=== PATIENT | female | born 1950 | race American Indian/Alaskan Native ===

== ENCOUNTER 2017-06-21 08:18 | Day surgery (SDC) | payer MEDICARE ==
[~2017-06-21 08:18] MED LIST: ANCEF/STERILE WATER 2 GM/20 ML 2 GM/20 ML SYRINGE IV NR; HEPARIN 10,000 UNITS/10 ML ONE; MARCAINE 0.25% INFILTRATI ONE; NACL 0.9% 1000 ML 1,000 ML IV SCH; NACL 0.9% 500 ML 500 ML ONE
[2017-06-21] MEDS ORDERED: DIPRIVAN 10 MG/ML IV ONE ×2 (09:49→12:51)
[2017-06-21] MEDS ORDERED: DILAUDID ONE (09:50)
[2017-06-21 09:52] LABS: Basophils % (Auto) 0.3 % (0.0-1.8); Eosinophils % (Auto) 1.8 % (0.0-4.3); Hematocrit 33.8 % (30.3-42.9); Hemoglobin 11.3 gm/dl (10.1-14.3); Mean Corpuscular HGB Conc 33 % (30-34); Mean Corpuscular Hemoglobin 31 pg (28-32); Mean Corpuscular Volume 93 fl (79-97); Platelet Count 212 K/mm3 (140-440); Red Blood Count 3.63 M/mm3 (3.65-5.03); Red Cell Distribution Width 16.8 % (13.2-15.2); White Blood Count 5.9 K/mm3 (4.5-11.0)
[2017-06-21 10:02] LABS: INR 0.98 (0.87-1.13)
[2017-06-21 10:04] LABS: BUN/Creatinine Ratio 10.71; Calcium 9.2 mg/dL (8.4-10.2); Potassium 4.2 mmol/L (3.6-5.0)
--- NOTE | 2017-06-21 10:08 | Anesthesia Day of Surgery ---
Anesthesia Day of Surgery - Day of Surgery Patient Examined: Yes Patient H&P Reviewed: Yes Patient is NPO: Yes
[2017-06-21] MEDS ORDERED: PEPCID IV NR (10:10)
[2017-06-21] MEDS ORDERED: PEPCID PO NR (10:10)
--- NOTE | 2017-06-21 10:10 | Anesthesia Consultation ---
Anesthesia Consult and Med Hx Date of service: 06/21/17 - Airway Anesthetic Teeth Evaluation: Good ROM Head & Neck: Adequate Mental/Hyoid Distance: Adequate Mallampati Class: Class II Intubation Access Assessment: Probably Good - Pulmonary Exam CTA: Yes - Cardiac Exam Cardiac Exam: RRR - Pre-Operative Health Status ASA Pre-Surgery Classification: ASA3 Proposed Anesthetic Plan: General - Pulmonary Hx Smoking: No Hx Asthma: No Hx Sleep Apnea: No - Cardiovascular System Hx Hypertension: Yes - Central Nervous System Hx Seizures: Yes (TREATED FOR EPILEPSY SINCE STROKE, NO SEIZURES SINCE 2000) CVA: Yes (STROKE 2000, on ASA) - Endocrine Hx Renal Disease: Yes Hx End Stage Renal Disease: Yes Hx Non-Insulin Dependent Diabetes: No
[2017-06-21] MEDS ORDERED: PEPCID ONE (10:19)
[2017-06-21] MEDS ORDERED: NACL 0.9% 500 ML IRRIGATION ONE (12:26)
[2017-06-21] MEDS ORDERED: HEPARIN 10,000 UNITS/10 ML 2,000 UNIT in NACL 0.9% 500 ML 500 ML IR ONE (12:26)
[2017-06-21] MEDS ORDERED: MARCAINE 0.25% INFILTRATI ONE ×2 (12:26)
[2017-06-21] MEDS ORDERED: NACL 0.9% IR ONE (12:26)
[2017-06-21] MEDS ORDERED: HEPARIN 10,000 UNITS/10 ML IV ONE (12:26)
[2017-06-21] MEDS ORDERED: XYLOCAINE MPF 2% ONE (12:58)
[2017-06-21] MEDS ORDERED: DECADRON ONE (12:59)
[2017-06-21] MEDS ORDERED: ZOFRAN ONE (13:00)
[2017-06-21] MEDS ORDERED: THROMBIN SPRAYKIT (BOVINE) TP ONE (13:50)
[2017-06-21] MEDS ORDERED: GELFOAM TP ONE ×2 (13:50→13:53)
[2017-06-21] MEDS ORDERED: THROMBIN (BOVINE) TP ONE (13:53)
--- NOTE | 2017-06-21 14:31 | Short Stay Summary ---
Short Stay Documentation Date of service: 06/21/17 - History H&P: obtained from office - Allergies and Medications Current Medications: Allergies QUAN Inhibitors Allergy (Verified 06/21/17 10:35) Angioedema codeine Allergy (Verified 06/13/17 09:22) N&V Home Medications Medication Instructions Recorded Confirmed Last Taken Type Aspirin [Aspirin BABY CHEW TAB] 81 mg PO QDAY 06/21/17 06/21/17 06/20/17 08:30 History AtorvaSTATin [Lipitor] 1 tab PO DAILY 06/21/17 06/21/17 06/20/17 08:30 History Cinacalcet HCl [Sensipar] 60 mg PO DAILY 06/21/17 06/21/17 06/20/17 20:30 History Escitalopram Oxalate [Lexapro] 1 tab PO DAILY 06/21/17 06/21/17 06/20/17 20:30 History Folic Acid 0.4 mg PO QDAY 06/21/17 06/21/17 06/20/17 08:30 History Pantoprazole [Protonix] 40 mg PO BID 06/21/17 06/21/17 06/20/17 20:30 History Vit B Comp&C/Folic Acid/Vit D3 1 tab PO DAILY 06/21/17 06/21/17 06/20/17 08:30 History [Dialyvite 800 Plus D Wafer] amLODIPine [Norvasc] 5 mg PO DAILY 06/21/17 06/21/17 06/20/17 08:30 History carBAMazepine [TEGretol] 200 mg PO TID 06/21/17 06/21/17 06/20/17 20:30 History Active Medications Famotidine (Pepcid) 20 mg IV PREOP NR Stop: 06/21/17 15:00 Cefazolin Sodium (Ancef/Sterile Water 2 Gm/20 Ml) 2 gm in 20 mls @ 80 mls/hr IV PREOP NR PRN Reason: Protocol Stop: 06/21/17 23:55 Sodium Chloride (Nacl 0.9% 1000 Ml) 1,000 mls @ 42 mls/hr IV DIRECT JASMIN Last Admin: 06/21/17 10:17 Dose: 42 mls/hr - Brief post op/procedure progress note Pre-op diagnosis: Poorly maturing left AV fistula, ESRD Post-op diagnosis: same Procedure: Left AV fistula revision, fistula elevation Anesthesia: GETA Findings: palpable thrill Surgeon: DEVON STEINER Pharmaceutical Officer: NYDIA JHAVERI Estimated blood loss: minimal Condition: stable - Hospital course Hospital course: Patient was admitted on a same day basis for elective surgery. - Disposition Condition at discharge: Good Disposition: DC-01 TO HOME OR SELFCARE - Discharge Diagnoses (1) Dialysis AV fistula malfunction Status: Acute Qualifiers: Encounter type: E Short Stay Discharge Plan Activity: avoid flexion Additional Instructions: Elevate extremity on pillows Use sponge ball to maintain range of motion Call for problems Follow up with: PATRICIA TRENT MD [Primary Care Provider] - 7 Days Forms: Outpatient Surgery DC Inst.
[2017-06-21 15:05] VITALS: BP 161/78
--- NOTE | 2017-06-21 15:23 | Post Anesthesia Evaluation ---
- Post Anesthesia Evaluation Patient Participated: Yes Airway Patent: Yes Stable Respiratory Function: Yes Nausea/Vomiting: No Temp > 96.8F: Yes Pain Manageable: Yes Adequeate Hydration: Yes Anesthesia Complications: No Block Receding Appropriately: Not Applicable Patient on Ventilator: No
--- NOTE | 2017-08-03 11:35 | Operative Report ---
PREOPERATIVE DIAGNOSES: End-stage renal disease, poorly maturing left arteriovenous fistula. POSTOPERATIVE DIAGNOSES: End-stage renal disease, poorly maturing left arteriovenous fistula PROCEDURE: AV fistula revision -- elevation, left upper extremity. SURGEON: Philippe Londono MD COMPLICATIONS: None. INDICATIONS: This patient has a brachiobasilic fistula and needs to be elevated. She has a palpable thrill and ultrasound demonstrates suitable physiology for fistula elevation. She was brought to surgery for this purpose. FINDINGS: Successful elevation of an AV fistula, palpable thrill postoperatively, palpable radial pulse. DETAILS OF PROCEDURE: Consent was obtained. The patient was taken to the operating room and placed in supine position. Appropriate levels of anesthesia was provided. The patient's arm was prepped and draped in a sterile fashion. We began the procedure with an incision on the medial aspect of the arm. This extended from the previous scar in the medial aspect of the arm. We continued the incision on the medial aspect of the arm towards the axilla. We dissected through the subcutaneous tissue and through the fascia. We were careful to protect the venous and nerve structures, which were obvious in the wound. We continued our dissection and uncovered the basilic vein. There were some branches that were ligated and transected. We continued the mobilization through the axilla entered the deep system via branches were ligated. We completely freed the veins and then brought it away from the deep structures, the artery and nervous structures were protected. We continued our dissection proximally through the old scar and continued to mobilize the vein ligating large branches proximally. At this point, we were ready to transect the vessel. We administered heparin. We created a superficial tunnel with a Jacy-Wick tunneler. The proximal aspect of the vessel was controlled with the angled DeBakey clamp. The fistula was transected. We then hydrodilated the vessel with heparinized saline. We used dilators to improve the diameters of the vessel up to about 4.5 mm. The vessel appeared to be a suitable structure for fistula creation. We marked the anterior surface of the vessel to maintain proper orientation. We then tunneled the vessel on the medial aspect of the arm in a superficial fashion. It was not enough reach, not enough length on the vessel to perform an end-to-end anastomosis, therefore we dissected the tissue to identify the brachial artery. This structure was isolated and controlled with vessel loops. It was at this point where the vessel had ____. An arteriotomy was performed with an 11 blade. This was extended with Kang scissors. We performed an end-to-side anastomosis through the brachial artery after control was obtained. This was done with 6-0 Prolene. After this, we released the flow into the fistula and detected a palpable thrill. The patient maintained a good radial pulse. The old inflow for the fistula was ligated with a silk tie and at this point, we were prepared for closure. The lengthy incision was made hemostatic with electrocautery and Gelfoam and thrombin. Extra time was taken to ensure proper hemostasis. We then closed the superficial layers with 3-0 Vicryl and reapproximated the skin with 4-0 Monocryl. No further intervention was necessary at this point. Sterile dressing was applied. The patient was awakened from anesthesia and taken to the recovery room having suffered no complications. JOB# [id number] JIMMY/MATHIEU
== END 2017-06-21 15:46 | disposition home or self-care (01) ==
LOC: OR 08:18
PROVIDERS: ATTEND Surgery Vascular Surgery
DX: T82.590A Other mechanical complication of surgically created arteriovenous fistula, initial encounter (principal); Y83.2 Surgical operation with anastomosis, bypass or graft as the cause of abnormal reaction of the patient, or of later complication, without mention of misadventure at the time of the procedure; Y83.9 Surgical procedure, unspecified as the cause of abnormal reaction of the patient, or of later complication, without mention of misadventure at the time of the procedure; I12.0 Hypertensive chronic kidney disease with stage 5 chronic kidney disease or end stage renal disease; N18.6 End stage renal disease; Z86.73 Personal history of transient ischemic attack (TIA), and cerebral infarction without residual deficits; Z79.01 Long term (current) use of anticoagulants; Z79.82 Long term (current) use of aspirin
CPT/HCPCS: 36415; 36832; 80048; 85025; 85610; A4649; J0690; J1100; J1170; J1644; J2405; J2704; J7030; J7040